=== PATIENT | female | born 1980 | race African-American/Black ===

== ENCOUNTER 2018-04-09 21:32 | Emergency (ER) | payer MEDICARE, MEDICAID ==
[~2018-04-09] VITALS: Ht 170.2 cm; Wt 58.0 kg
[2018-04-09 22:20] LABS: MICROSCOPIC NOT IND
[2018-04-09 22:39] LABS: BASOPHILS # (AUTO) 0.01 x10^3/uL (0-0.1); BASOPHILS % (AUTO) 0 % (0-1); EOSINOPHILS # (AUTO) 0.08 x10^3/uL (0-0.4); EOSINOPHILS % (AUTO) 2 % (1-7); LYMPHOCYTES % (AUTO) 25 % (22-44); MD NO; MEAN CORPUSCULAR HEMOGLOBIN 28.7 pg (27.0-34.8); MEAN CORPUSCULAR HGB CONC 33.3 g/dL (32.4-35.8); MEAN CORPUSCULAR VOLUME 86.2 fL (80-100); MONOCYTES # (AUTO) 0.44 x10^3/uL (0.2-0.8); MONOCYTES % (AUTO) 12 % (2-9); NEUTROPHILS # (AUTO) 2.22 x10^3/uL (1.8-6.8); NEUTROPHILS % (AUTO) 61 % (42-75); PLATELET COUNT 211 x10^3/uL (130-400); RED BLOOD COUNT 4.59 x10^6/uL (3.82-5.3); RED CELL DISTRIBUTION WIDTH 14.2 % (9.6-15.2)
[2018-04-09 22:42] LABS: ALANINE AMINOTRANSFERASE 25 U/L (12-78); ALBUMIN 3.5 g/dL (3.4-5.0); ANION GAP 8 mmol/L (5-15); CALCIUM 8.6 mg/dL (8.5-10.1); CHLORIDE 109 mmol/L (98-107); CREATININE 0.77 mg/dL (0.55-1.02)
[2018-04-09 22:45] LABS: ALKALINE PHOSPHATASE 76 U/L (45-117); BILIRUBIN,TOTAL 0.4 mg/dL (0.2-1.0); TOTAL PROTEIN 8.6 g/dL (6.4-8.2)
[2018-04-09 22:45] LABS: CULTURE INDICATED? NO
[2018-04-09 22:59] VITALS: BP 126/80
[2018-04-09] MEDS ORDERED: KETOROLAC 30 MG/1 ML IVPush ONE (23:00)
[2018-04-09] MEDS ORDERED: PLEASE ENTER ALLERGIES MC SCH (23:00)
[2018-04-09] MEDS ORDERED: KETOROLAC 30 MG/1 ML ONE (23:05)
== END 2018-04-09 23:30 | disposition home or self-care (01) ==
LOC: ED 23:24
DX: S06.899A Other specified intracranial injury with loss of consciousness of unspecified duration, initial encounter (principal); R55 Syncope and collapse; E87.6 Hypokalemia; F17.200 Nicotine dependence, unspecified, uncomplicated; W22.8XXA Striking against or struck by other objects, initial encounter; Y93.89 Activity, other specified; Y92.091 Bathroom in other non-institutional residence as the place of occurrence of the external cause; Y99.8 Other external cause status
CPT/HCPCS: 36415; 70450; 70486; 71045; 80053; 81003; 85025; 93005; 96374; 99285; J1885